=== PATIENT | male | born 1985 | race Caucasian/White ===

== ENCOUNTER 2018-11-21 10:28 | Emergency (ER) | payer MEDICAID ==
[2018-11-21] MEDS: METHOCARBAMOL 750 MG TAB PO (12:25)
[2018-11-21] MEDS: DEXAMETHASONE 10 MG/ML 1 ML INJ IM (12:25)
[2018-11-21] MEDS: KETOROLAC 30 MG INJ IM (12:26)
== END 2018-11-21 14:08 | disposition home or self-care (01) ==
LOC: FTE 10:28
DX: M54.5 Low back pain (principal)
CPT/HCPCS: 72100; 96372; 99284-25